=== PATIENT | female | born 1935 | race Caucasian/White ===

== ENCOUNTER 2021-01-06 12:16 | Outpatient (REF) | payer MEDICARE, SELFPAY ==
[2021-01-06 12:32] VITALS: BMI 40.8
[2021-01-06 12:33] VITALS: BP 123/77; PULSE 77; RESP 16; TEMP 36.9; O2SAT 96
== END 2021-01-06 12:17 | disposition home or self-care (01) ==
LOC: HO.MS 12:16
PROVIDERS: PCP Family Medicine; Visit Provider Ophthalmology
PROC: (CPT 66821; principal; 2021-01-06 14:50)
DX: H26.492 Other secondary cataract, left eye (principal); Z83.511 Family history of glaucoma; I10 Essential (primary) hypertension; Z96.1 Presence of intraocular lens; Z79.899 Other long term (current) drug therapy
CPT/HCPCS: 66821

== ENCOUNTER 2021-01-13 11:58 | Outpatient (REF) | payer MEDICARE, SELFPAY ==
[2021-01-13 12:13] VITALS: BMI 40.8
[2021-01-13 12:14] VITALS: BP 107/53; PULSE 79; RESP 20; TEMP 36.3; O2SAT 94
== END 2021-01-13 11:59 | disposition home or self-care (01) ==
LOC: HO.MS 11:58
PROVIDERS: PCP Family Medicine; Visit Provider Ophthalmology
PROC: (CPT 66821; principal; 2021-01-13 13:30)
DX: H26.491 Other secondary cataract, right eye (principal); Z83.511 Family history of glaucoma; Z96.1 Presence of intraocular lens; I10 Essential (primary) hypertension; Z79.899 Other long term (current) drug therapy
CPT/HCPCS: 66821